=== PATIENT | female | born 1950 | race Caucasian/White ===

== ENCOUNTER 2018-06-08 04:06 | Emergency (ER) | payer MEDICARE ==
--- NOTE | 2018-06-08 05:02 | ED ---
Allergic Reaction HPI - General Chief complaint: Allergic Reaction Stated complaint: allergic reaction Time Seen by Provider: 06/08/18 04:13 Source: patient Mode of arrival: ambulatory Limitations: no limitations - History of Present Illness Initial Comments: This patient is a 67-year-old woman who presents to be evaluated for swelling of her upper lip which had started yesterday and is worse today. Patient does admits taking Vasotec. She denies any if cult in breathing, change in speech or swallowing. MD Complaint: facial swelling Onset/Timin -: days(s) Exposure: medication Symptoms: facial swelling, lip swelling Severity: mild Treatment Prior to Arrival: none Previous Allergy History: none - Related Data Home Medications Medication Instructions Recorded Confirmed Aspirin [Adult Low Dose Aspirin EC] 81 mg PO DAILY 07/02/16 07/02/16 Calcium Carbonate/Vitamin D3 1 each PO DAILY 07/02/16 07/02/16 [Calcium 600-Vit D3 400 Caplet] Enalapril Maleate [Vasotec] 20 mg PO DAILY 07/02/16 07/04/16 Glucosam/Niko-Msm1/C/Abe/Bosw 1 each PO DAILY 07/02/16 07/02/16 [Glucosamine-Chondroitin Tablet] L.acidoph,Paracasei, B.lactis 1 each PO DAILY 07/02/16 07/02/16 [Probiotic] Multivitamins, Thera [Multivitamin] 1 each PO DAILY 07/02/16 07/02/16 Allergies Allergy/AdvReac Type Severity Reaction Status Date / Time No Known Allergies Allergy Verified 06/08/18 04:11 Review of Systems ROS Statement: Those systems with pertinent positive or pertinent negative responses have been documented in the HPI. ROS Other: All systems not noted in ROS Statement are negative. Constitutional: Denies: fever, chills ENT: Reports: as per HPI. Denies: throat pain, congestion Respiratory: Denies: cough, dyspnea Cardiovascular: Denies: chest pain, palpitations Gastrointestinal: Denies: abdominal pain, vomiting, diarrhea Skin: Denies: rash Neurological: Denies: headache Past Medical History Past Medical History: Hypertension History of Any Multi-Drug Resistant Organisms: None Reported Past Surgical History: Tonsillectomy Additional Past Surgical History / Comment(s): D & C. COLONOSCOPY Past Anesthesia/Blood Transfusion Reactions: No Reported Reaction Past Psychological History: Unable to Obtain Smoking Status: Never smoker Past Alcohol Use History: Occasional Past Drug Use History: None Reported - Past Family History Father Family Medical History: Cancer General Exam Limitations: no limitations General appearance: in no apparent distress Head exam: Present: atraumatic, normocephalic Eye exam: Present: normal appearance. Absent: scleral icterus, conjunctival injection ENT exam: Present: normal oropharynx, mucous membranes moist, other (There is mild angioedema of the upper lip. No edema of the pharynx or tongue swelling. No sublingual or neck fullness.) Neck exam: Present: normal inspection, full ROM. Absent: tenderness Respiratory exam: Present: normal lung sounds bilaterally. Absent: respiratory distress, wheezes, rales, rhonchi, stridor Cardiovascular Exam: Present: regular rate, normal rhythm, normal heart sounds. Absent: systolic murmur, diastolic murmur, rubs, gallop GI/Abdominal exam: Present: soft. Absent: tenderness Extremities exam: Present: normal inspection, normal capillary refill. Absent: pedal edema, calf tenderness Neurological exam: Present: alert Skin exam: Present: warm, dry, intact, normal color. Absent: rash Course Vital Signs 06/08/18 06/08/18 04:08 05:07 Temperature 98.6 F 97.8 F Pulse Rate 95 87 Respiratory 16 18 Rate Blood Pressure 193/94 165/78 O2 Sat by Pulse 94 L 97 Oximetry Medical Decision Making - Medical Decision Making Patient is 67-year-old woman with angioedema, using Vasotec. Discussed discontinuing the ROSHNI inhibitor and follow with her physician for a new antihypertensive. Discussed return parameters Disposition Clinical Impression: Angioedema Disposition: HOME SELF-CARE Condition: Good Instructions: Angioedema (ED) Is patient prescribed a controlled substance at d/c from ED?: No Referrals: Khoi Mcbride DO [Primary Care Provider] - 1-2 days
[2018-06-08 05:08] VITALS: BP 165/78; PULSE 87; RESP 18; TEMP 97.8
== END 2018-06-08 05:14 | disposition home or self-care (01) ==
LOC: EC 04:06
DX: T78.3XXA Angioneurotic edema, initial encounter (principal); T46.4X5A Adverse effect of angiotensin-converting-enzyme inhibitors, initial encounter; I10 Essential (primary) hypertension; Z98.890 Other specified postprocedural states; Z79.82 Long term (current) use of aspirin; Z79.899 Other long term (current) drug therapy
CPT/HCPCS: 99283

== ENCOUNTER → 2018-10-19 | Outpatient (CLI) | payer MEDICARE ==
--- NOTE | 2018-10-20 10:57 | MM ---
Reason for exam: screening (asymptomatic). Last mammogram was performed 1 year and 2 months ago. History: Patient is postmenopausal. Family history of breast cancer in paternal grandmother at age 75. Took hormonal contraceptives for 4 years. Took progesterone for 8 months. Physical Findings: A clinical breast exam by your physician is recommended on an annual basis and results should be correlated with mammographic findings. MG 3D Screening Mammo W/Cad Bilateral CC and MLO view(s) were taken. Prior study comparison: August 05, 2017, bilateral MG 3d screening mammo w/cad. May 09, 2016, bilateral MG 3d screening mammo w/cad. There are scattered fibroglandular densities. There is chronic nodularity in the left breast. No significant changes when compared with prior studies. ASSESSMENT: Negative, BI-RAD 1 RECOMMENDATION: Routine screening mammogram of both breasts in 1 year.
== END | disposition home or self-care (01) ==
LOC: RADMAMWWP 08:13
PROVIDERS: ATTEND Family Medicine
DX: Z12.31 Encounter for screening mammogram for malignant neoplasm of breast (principal)
CPT/HCPCS: 77063; 77067

== ENCOUNTER → 2020-05-10 | Outpatient (CLI) | payer MEDICARE ==
--- NOTE | 2020-05-11 10:12 | MM ---
Reason for exam: screening (asymptomatic). Last mammogram was performed 1 year and 7 months ago. History: Patient is postmenopausal. Family history of breast cancer in paternal grandmother at age 75. Took hormonal contraceptives for 4 years. Took progesterone for 8 months. Physical Findings: A clinical breast exam by your physician is recommended on an annual basis and results should be correlated with mammographic findings. MG 3D Screening Mammo W/Cad Bilateral CC, MLO, and CV view(s) were taken. Prior study comparison: October 19, 2018, bilateral MG 3d screening mammo w/cad. August 05, 2017, bilateral MG 3d screening mammo w/cad. There are scattered fibroglandular densities. Finding #1: There is a 9 mm equal density (isodense), obscured mass in the right breast. Finding #2: There are typically benign calcifications in both breasts. ASSESSMENT: Incomplete: need additional imaging evaluation, BI-RAD 0 RECOMMENDATION: Special view mammogram of the right breast. If lesion persists on supplemental views, image directed ultrasound is recommended. [facility] will attempt to contact patient to return for supplemental views and ultrasound if indicated.
== END | disposition home or self-care (01) ==
LOC: RADMAMWWP 14:35
PROVIDERS: ATTEND Family Medicine
DX: Z12.31 Encounter for screening mammogram for malignant neoplasm of breast (principal)
CPT/HCPCS: 77063; 77067

== ENCOUNTER → 2020-05-17 | Outpatient (CLI) | payer MEDICARE ==
--- NOTE | 2020-05-17 10:45 | MM ---
Reason for exam: additional evaluation requested from abnormal screening. Last mammogram was performed less than 1 month ago. History: Patient is postmenopausal. Family history of breast cancer in paternal grandmother at age 75. Took hormonal contraceptives for 4 years. Took progesterone for 8 months. Physical Findings: Nurse did not find any significant physical abnormalities on exam. MG 3D Work Up W/Cad RT Spot compression CC, spot compression MLO, and ML view(s) were taken of the right breast. Prior study comparison: May 10, 2020, bilateral MG 3d screening mammo w/cad. October 19, 2018, bilateral MG 3d screening mammo w/cad. There are scattered fibroglandular densities. There is no discrete abnormality. These results were verbally communicated with the patient and result sheet given to the patient on 05/17/20. ASSESSMENT: Benign, BI-RAD 2 RECOMMENDATION: Return to routine screening mammogram schedule for both breasts.
== END | disposition home or self-care (01) ==
LOC: RADMAMWWP 09:04
PROVIDERS: ATTEND Family Medicine
DX: R92.8 Other abnormal and inconclusive findings on diagnostic imaging of breast (principal)
CPT/HCPCS: 77065; G0279; 77061

== ENCOUNTER → 2021-05-20 | Outpatient (CLI) | payer MEDICARE ==
--- NOTE | 2021-05-21 11:17 | MM ---
Reason for exam: screening (asymptomatic). Last mammogram was performed 1 year ago. History: Patient is postmenopausal. Family history of breast cancer in paternal grandmother at age 75. Took hormonal contraceptives for 4 years. Took progesterone for 8 months. Physical Findings: A clinical breast exam by your physician is recommended on an annual basis and results should be correlated with mammographic findings. MG 3D Screening Mammo W/Cad Bilateral CC and MLO view(s) were taken. Prior study comparison: May 17, 2020, right breast MG 3d work up w/cad RT. May 10, 2020, bilateral MG 3d screening mammo w/cad. There are scattered fibroglandular densities. ASSESSMENT: Negative, BI-RAD 1 RECOMMENDATION: Routine screening mammogram of both breasts in 1 year.
== END | disposition home or self-care (01) ==
LOC: RADMAMWWP 15:29
PROVIDERS: ATTEND Family Medicine
DX: Z12.31 Encounter for screening mammogram for malignant neoplasm of breast (principal); Z78.0 Asymptomatic menopausal state
CPT/HCPCS: 77063; 77067

== ENCOUNTER → 2022-07-03 | Outpatient (CLI) | payer MEDICARE ==
--- NOTE | 2022-07-03 12:05 | MM ---
Reason for Exam: Screening (asymptomatic). Last mammogram was performed 1 year(s) and 2 month(s) ago. Patient History: Menarche at age 10. First Full-Term at age 22. Postmenopausal. Patient has history of breast feeding. Progesterone for 8 months. Patient used Hormonal Contraceptives for 4 years. Paternal grandmother had breast cancer, age 75. Risk Values: Kathrin 5 year model risk: 1.7%. NCI Lifetime model risk: 4.5%. Prior Study Comparison: 08/05/2017 Bilateral Screening Mammogram, [facility]. 10/19/2018 Bilateral Screening Mammogram, [facility]. 05/10/2020 Bilateral Screening Mammogram, [facility]. 05/17/2020 Right Diagnostic Mammogram, [facility]. 05/20/2021 Bilateral Screening Mammogram, [facility]. Tissue Density: There are scattered fibroglandular densities. Findings: Analyzed By CAD. Small scattered benign-appearing round calcification in the bilateral breasts are redemonstrated. Some benign-appearing vascular calcifications bilaterally is again seen. There is no suspicious new group of microcalcifications or new suspicious mass in either breast. Overall Assessment: Benign, BI-RAD 2 Management: Screening Mammogram of both breasts in 1 year. A clinical breast exam by your physician is recommended on an annual basis and results should be correlated with mammographic findings. Electronically signed and approved by: Sb Pena M.D.
== END | disposition home or self-care (01) ==
LOC: RADMAMWWP 10:13
PROVIDERS: ATTEND Family Medicine
DX: Z12.31 Encounter for screening mammogram for malignant neoplasm of breast (principal); Z78.0 Asymptomatic menopausal state; Z80.3 Family history of malignant neoplasm of breast
CPT/HCPCS: 77063; 77067

== ENCOUNTER → 2022-10-30 | Outpatient (CLI) | payer MEDICARE ==
--- NOTE | 2022-10-30 14:10 | BD ---
EXAMINATION TYPE: Axial Bone Density DATE OF EXAM: 10/30/2022 COMPARISON: 05/09/2016 CLINICAL HISTORY: 72 years year old Female. ICD-10 CODE: Z78.0 asymptomatic menopausal state Height: 64.5" Weight: 216.5 FRAX RISK QUESTIONS: Alcohol (3 or more units per day): NO Family History (Parent hip fracture): NO Glucocorticoids (More than 3mos): NO (Ex: prednisone, prednisolone, methylprednisolone, dexamethasone, and hydrocortisone). History of Fracture in Adulthood: NO Secondary Osteoporosis: 1. Type 1 Diabetes: NO 2. Hyperthyroidism: NO 3. Menopause before 45: NO 4. Malnutrition: NO 5. Chronic liver disease: NO Rheumatoid Arthritis: NO Current Tobacco Use: NO RISK FACTORS HISTORY OF: Hip Fracture (Right/Left): NO Spine Fracture: NO History of Wrist Fracture: NO Surgery to Spine/Hip(right/left)/Wrist (right/left): NO Family History of Osteoporosis: YES, MOTHER Active: YES Diet low in dairy products/other sources of calcium: NO Postmenopausal woman: YES Take estrogen and/or progesterone medications: YES How long: BRIEFLY AROUND AGE 49 Lost more than 2 inches in height since high school: YES Frequent falls: NO Poor Health: EXCELLENT Hyperparathyroidism: NO Adrenal Insufficiency: NO MEDICATIONS: Prednisone or other steroids: NO Thyroid Medications: NO Osteoporosis Medications: NO Additional Medications: BLOOD PRESSURE MEDS, POTASSIUM, WATER PILL, CALCIUM, VIT D, OSTEOBIFLEX Additional History: NONE EXAM MEASUREMENTS: Bone mineral densitometry was performed using the [employer] System. Bone mineral density as measured about the Lumbar spine is: ----- L1-L4(G/cm2): 1.572 T Score Values are as follows: ----- L1: 1.4 ----- L2: 3.1 ----- L3: 4.3 ----- L4: 3.9 ----- L1-L4: 3.3 Bone mineral density has: INCREASED 5.3% since study of: 05/09/2016 Bone mineral density about the R hip (g/cm2): 1.009 Bone mineral density about the L hip (g/cm2): 1.151 T Score values are as follows: -----R Neck: -0.2 -----L Neck: 0.8 -----R Total: 1.0 -----L Total: 1.5 Bone mineral density has: INCREASED 4.2% since study of: 05/09/2016 FRAX%s: The graph provided illustrates a 7.1% chance for a major osteoporotic fx and a 0.5% chance fo r the hips probability for fx in 10 years time. IMPRESSION: Normal (Values between +1 and -1 indicate normal bone mass). Consider repeating this study in 5 year s or sooner if there is some new clinical indication. NOTE: T-SCORE=SD OF THE YOUNG ADULT MEAN.
== END | disposition home or self-care (01) ==
LOC: RADBDWWP 12:40
PROVIDERS: ATTEND Family Medicine
DX: Z78.0 Asymptomatic menopausal state (principal)
CPT/HCPCS: 77080

== ENCOUNTER → 2024-06-30 | Outpatient (CLI) | payer MEDICARE ==
--- NOTE | 2024-06-30 13:09 | XR ---
EXAMINATION TYPE: XR chest 2V DATE OF EXAM: 06/30/2024 COMPARISON: NONE TECHNIQUE: PA and lateral views submitted. HISTORY: Dyspnea FINDINGS: The lungs are clear and there is no pneumothorax, pleural effusion, or focal pneumonia. Heart size normal and no overt failure. Osseous structures intact. IMPRESSION: 1. No acute process.
== END | disposition home or self-care (01) ==
LOC: RADXRMAIN 12:28
PROVIDERS: ATTEND Family Medicine
DX: R06.09 Other forms of dyspnea (principal)
CPT/HCPCS: 71046

== ENCOUNTER → 2024-09-27 | Outpatient (CLI) | payer MEDICARE ==
--- NOTE | 2024-09-27 13:00 | MM ---
Reason for Exam: Screening (asymptomatic). Last mammogram was performed 1 year(s) and 2 month(s) ago. Patient History: Menarche at age 10. First Full-Term at age 22. Postmenopausal. Patient has history of breast feeding. Progesterone for 8 months. Patient used Hormonal Contraceptives for 4 years. Paternal grandmother had breast cancer, age 75. Sister had breast cancer, age 70. Daughter had breast cancer, age 48. Daughter tested for BRCA1 outcome was negative. Risk Values: Kathrin 5 year model risk: 7.8%. NCI Lifetime model risk: 16.1%. Prior Study Comparison: 05/20/2021 Bilateral Screening Mammogram, [facility]. 07/03/2022 Bilateral MG 3D screening mammo w/cad, [facility]. 07/28/2023 Bilateral MG 3D screening mammo w/cad, [facility]. Tissue Density: There are scattered areas of fibroglandular density. Findings: Analyzed By CAD. There is no suspicious group of microcalcifications or new suspicious mass in either breast. Overall Assessment: Benign, BI-RAD 2 Management: Screening Mammogram of both breasts in 1 year. . Patient should continue monthly self-breast exams. A clinical breast exam by your physician is recommended on an annual basis. This exam should not preclude additional follow-up of suspicious palpable abnormalities. Note on Kathrin scores and lifetime risk: 1. A Kathrin score greater than 3% is considered moderate risk. If this is the case, consider specialist referral to assess eligibility for a risk reducing agent. 2. If overall lifetime risk for the development of breast cancer is 20% or higher, the patient may qualify for future screening with alternating mammogram and breast MRI. [facility], , 09/27/2024 12:57 PM. Electronically signed and approved by: Bharat Conn M.D. Radiolog[facility]
== END | disposition home or self-care (01) ==
LOC: RADMAMWWP 11:05
PROVIDERS: ATTEND Family Medicine
DX: Z12.31 Encounter for screening mammogram for malignant neoplasm of breast (principal); R92.323 Mammographic fibroglandular density, bilateral breasts; Z78.0 Asymptomatic menopausal state; Z80.3 Family history of malignant neoplasm of breast
CPT/HCPCS: 77063; 77067